=== PATIENT | female | born 1995 | race Caucasian/White ===

== ENCOUNTER 2021-09-16 21:15 | Emergency (ER) | payer OTHER ==
[~2021-09-16] VITALS: Ht 149.9 cm; Wt 64.0 kg
[2021-09-16 21:35] VITALS: BP 148/84
--- NOTE | 2021-09-16 23:19 | NUR ---
Patient ambulated to bed 7 and change to a gown.
[2021-09-16] MEDS ORDERED: ACETAMINOPHEN 325 MG TAB PO ONE (23:45)
[2021-09-16] MEDS ORDERED: ASPIRIN 325 MG TAB PO ONE (23:45)
[2021-09-16 23:59] LABS: BASOPHILS % (AUTO) 0.2 % (0.0-2.0); EOSINOPHILS # (AUTO) 0.1 K/uL (0-0.4); EOSINOPHILS % (AUTO) 1.3 % (0.0-4.0); HEMATOCRIT 37.5 % (36-48); HEMOGLOBIN 12.7 g/dL (12.0-16.0); LYMPHOCYTES # (AUTO) 2.7 K/uL (2.5-16.5); LYMPHOCYTES % (AUTO) 22.7 % (20.5-51.1); MEAN CORPUSCULAR HEMOGLOBIN 28 pg (27-31); MEAN CORPUSCULAR HGB CONC 34 g/dL (33-37); MONOCYTES # (AUTO) 0.8 K/uL (0.8-1.0); MONOCYTES % (AUTO) 6.5 % (1.7-9.3); NEUTROPHILS # (AUTO) 8.1 K/uL (1.8-7.7); NEUTROPHILS % (AUTO) 69.3 % (42.2-75.2); PLATELET COUNT (AUTO) 224 K/uL (140-450); RED BLOOD CELL COUNT(AUTO) 4.57 MIL/uL (4.20-5.40); RED CELL DISTRIBUTION WIDTH 13.7 % (11.6-13.7); WHITE BLOOD COUNT (AUTO) 11.7 K/uL (4.8-10.8)
--- NOTE | 2021-09-17 00:05 | NUR ---
26 yo F BIB SELF FOR SHARP CHEST INTERMITTENT PAIN 12/13. PT STATES [facility] HAS HAD PAIN SINCE TUESDAY . PAIN WAS UNPROVOKED WHEN IT STARTED AT WORK SITTING DOWN. PT DID NOT TAKE ANY MEDS FOR PAIN BUT SAID HEART BEAT WAS FAST. DENIES N/V/D; SKIN IS PINK/WARM/DRY; AAOX4 WITH EVEN AND STEADY GAIT; LUNGS CLEAR BL; HR EVEN AND REGULAR; PT DENIES ANY FEVER, SOB, OR COUGH AT THIS TIME; VSS; PATIENT POSITIONED FOR COMFORT; HOB ELEVATED; BEDRAILS UP X2; BED DOWN. ER MD MADE AWARE OF PT STATUS. NO PMH NO ALLERGIES NO RX
[2021-09-17 00:21] LABS: ANION GAP 15.8 (8-16); CREATININE 0.7 mg/dL (0.6-1.3); POTASSIUM 3.8 mmol/L (3.5-5.1)
[2021-09-17] MEDS ORDERED: IBUP-2213 PO (00:49)
--- NOTE | 2021-09-17 00:51 | NUR ---
Dr. Guerra at bedside to explain results and treatment plans.
[2021-09-17 01:00] VITALS: BP 126/76
== END 2021-09-17 01:00 | disposition home or self-care (01) ==
LOC: MED 21:15
DX: R07.89 Other chest pain (principal); R00.2 Palpitations; Z79.899 Other long term (current) drug therapy
CPT/HCPCS: 36415; 71045; 80048; 84484; 85025; 93005; 99285